=== PATIENT | male | born 1995 | race Caucasian/White ===

== ENCOUNTER → 2018-02-07 | Outpatient (CLI) | payer MEDICAID ==
[~2018-02-07] MED LIST: KEFLEX500 M1 PO; MOTRIN400 MG PO
== END | disposition home or self-care (01) ==
LOC: RESCLI 02:40
DX: G40.909 Epilepsy, unspecified, not intractable, without status epilepticus (principal); F17.210 Nicotine dependence, cigarettes, uncomplicated; Z76.89 Persons encountering health services in other specified circumstances

== ENCOUNTER 2022-10-17 13:21 | Emergency (ER) | payer SELFPAY ==
[~2022-10-17] VITALS: Ht 182.8 cm; Wt 78.2 kg
[2022-10-17 14:08] LABS: MEAN CELL VOLUME 91.6 fl (80.0-94.0); MEAN CORPUSCULAR HGB 31.9 pg (27.0-31.0); MEAN CORPUSCULAR HGB CONC 34.8 g/dl (33.0-37.0); MEAN PLATELET VOLUME 11.4 fl (9.6-12.3); PLATELET COUNT AUTOMATED 204 10*3/uL (130-400); RED BLOOD COUNT 5.02 10*6/uL (4.50-5.90); RED CELL DISTRI WIDTH 12.5 % (0-14.5); WHITE BLOOD COUNT 17.4 10*3/uL (4.8-10.8)
[2022-10-17 14:15] LABS: MANUAL DIFF REFLEX YES
[2022-10-17 14:30] LABS: PLATELET SUFFICIENCY NORMAL (NORMAL); TOTAL CELLS COUNTED 100 #CELLS; TOXIC GRANULATION SLIGHT
[2022-10-17 14:37] LABS: ALKALINE PHOSPHATASE 76 U/L (46-116); BUN 13 mg/dl (9-23); CHLORIDE 104 mmol/L (98-107); POTASSIUM 3.8 mmol/L (3.4-5.1); SGPT/ALT 10 U/L (10-49); TOTAL PROTEIN 7.6 gm/dL (6.0-8.0)
[2022-10-17] MEDS ORDERED: ATIVAN1 MG PO (16:06)
== END 2022-10-17 16:33 | disposition home or self-care (01) ==
LOC: ED 13:21
PROVIDERS: Emergency Medicine
DX: R56.9 Unspecified convulsions (principal)

== ENCOUNTER 2022-12-03 20:20 | Emergency (ER) | payer SELFPAY ==
[~2022-12-03] VITALS: Ht 167.6 cm; Wt 86.2 kg
[~2022-12-03 20:20] MED LIST changes: +ATIVAN1 MG PO
[2022-12-03 20:47] LABS: BASO # 0.1 10*3/uL (0.0-0.1); BASO % 0.6 % (0.0-1.0); EOS # 0.2 10*3/uL (0.0-0.4); EOS % 2.3 % (1.0-4.0); HEMATOCRIT 49.4 % (42.0-52.0); LYMPH # 3.8 10*3/uL (1.3-4.4); MEAN CELL VOLUME 97.1 fl (80.0-94.0); MEAN PLATELET VOLUME 10.8 fl (9.6-12.3); MONO # 0.5 10*3/uL (0.1-1.0); MONO % 5.1 % (3.0-9.0); NEUT # 5.9 10*3/uL (2.3-7.9); NEUT % 55.8 % (47.0-73.0); PLATELET COUNT AUTOMATED 256 10*3/uL (130-400); RED BLOOD COUNT 5.09 10*6/uL (4.50-5.90); RED CELL DISTRI WIDTH 12.7 % (0-14.5); WHITE BLOOD COUNT 10.6 10*3/uL (4.8-10.8)
[2022-12-03 21:20] LABS: ALKALINE PHOSPHATASE 73 U/L (46-116); BUN 11 mg/dl (9-23); CHLORIDE 99 mmol/L (98-107); POTASSIUM 3.6 mmol/L (3.4-5.1); SGPT/ALT 40 U/L (10-49); TOTAL PROTEIN 7.4 gm/dL (6.0-8.0)
== END 2022-12-04 01:48 | disposition left against medical advice (07) ==
LOC: ED 20:20
PROVIDERS: Emergency Medicine
DX: R56.9 Unspecified convulsions (principal)

== ENCOUNTER 2023-03-04 14:07 | Emergency (ER) | payer SELFPAY ==
[~2023-03-04] VITALS: Ht 190.5 cm; Wt 77.1 kg
[2023-03-04] MEDS ORDERED: KEPPRA1000 MG PO ×3 (14:20→19:57)
[2023-03-04 16:14] LABS: BASO % 0.5 % (0.0-1.0); EOS % 0.2 % (1.0-4.0); LYMPH # 1.4 10*3/uL (1.3-4.4); LYMPH % 21.6 % (27.0-41.0); MEAN CELL VOLUME 88.8 fl (80.0-94.0); MEAN CORPUSCULAR HGB 30.4 pg (27.0-31.0); MEAN CORPUSCULAR HGB CONC 34.2 g/dl (33.0-37.0); MEAN PLATELET VOLUME 10.5 fl (9.6-12.3); MONO # 0.7 10*3/uL (0.1-1.0); NEUT # 4.2 10*3/uL (2.3-7.9); NEUT % 66.2 % (47.0-73.0); PLATELET COUNT AUTOMATED 217 10*3/uL (130-400); RED BLOOD COUNT 4.84 10*6/uL (4.50-5.90); RED CELL DISTRI WIDTH 12.2 % (0-14.5); WHITE BLOOD COUNT 6.4 10*3/uL (4.8-10.8)
[2023-03-04 16:39] LABS: ALKALINE PHOSPHATASE 64 U/L (46-116); BUN 9 mg/dl (9-23); CHLORIDE 103 mmol/L (98-107); POTASSIUM 3.7 mmol/L (3.4-5.1); SGPT/ALT 12 U/L (5-49); TOTAL PROTEIN 6.9 gm/dL (6.0-8.0)
[2023-03-04 16:51] LABS: ETHYL ALCOHOL < 3.0 mg/dl (<3)
[2023-03-04 19:24] LABS: BILIRUBIN Negative (Negative); BLOOD Negative (Negative); CLARITY Turbid (Clear); COLOR Yellow (Yellow); GLUCOSE Negative (Negative); KETONE Negative (Negative); LEUKO ESTERASE Negative (Negative); NITRITE Negative (Negative); SPECIFIC GRAVITY 1.015 (1.001-1.030)
[2023-03-04 19:25] LABS: PH 8.5 (4.5-8.0)
[2023-03-04 19:31] LABS: URINE AMPHETAMINES Negative (1000ng/ml); URINE BARBITURATES Negative (200ng/ml); URINE BENZODIAZEPINES Negative (200ng/ml); URINE CANNABINOIDS (THC) Positive (50ng/ml); URINE COCAINE Negative (300ng/ml); URINE METHADONE Negative (300ng/ml); URINE OPIATES Negative (300ng/ml); URINE PHENCYCLIDINE Negative (25ng/ml)
== END 2023-03-04 19:47 | disposition home or self-care (01) ==
LOC: ED 14:07
PROVIDERS: Family Medicine
DX: R56.9 Unspecified convulsions (principal); R44.0 Auditory hallucinations

== ENCOUNTER 2023-12-20 08:27 | Emergency (ER) | payer SELFPAY ==
[~2023-12-20] VITALS: Wt 72.6 kg
[~2023-12-20 08:27] MED LIST changes: +KEPPRA1000 MG PO
[2023-12-20] MEDS ORDERED: LORazepam 2 MG/ML VIAL IV ONE (09:15)
[2023-12-20] MEDS ORDERED: SODIUM CHLORIDE 0.9% 500 ML IV ONE (09:15)
[2023-12-20] MEDS ORDERED: LORazepam 2 MG/ML VIAL ONE (09:25)
[2023-12-20 09:26] LABS: HEMATOCRIT 51.1 % (42.0-52.0); MANUAL DIFF REFLEX YES; MEAN CORPUSCULAR HGB 31.1 pg (27.0-31.0); MEAN CORPUSCULAR HGB CONC 32.1 g/dl (33.0-37.0); MEAN PLATELET VOLUME 11.2 fl (9.6-12.3); PLATELET COUNT AUTOMATED 323 10*3/uL (130-400); RED BLOOD COUNT 5.27 10*6/uL (4.50-5.90); WHITE BLOOD COUNT 31.7 10*3/uL (4.8-10.8)
[2023-12-20 09:49] LABS: OVALOCYTES FEW; POLYCHROMASIA SLIGHT; TOTAL CELLS COUNTED 100 #CELLS; VACUOLATION OF NEUTROPHILS SLIGHT
[2023-12-20 09:50] LABS: PLATELET SUFFICIENCY NORMAL (NORMAL)
[2023-12-20] MEDS ORDERED: LEVETIRACETAM IN NACL (ISO-OS) 100 ML IV ONE (10:20)
[2023-12-20 13:48] LABS: ALKALINE PHOSPHATASE 84 U/L (46-116); BUN 11 mg/dl (9-23); CHLORIDE 101 mmol/L (98-107); POTASSIUM 3.1 mmol/L (3.4-5.1); SGPT/ALT 23 U/L (5-49); TOTAL PROTEIN 8.6 gm/dL (6.0-8.0)
[2023-12-20] MEDS ORDERED: LEVETIRACETAM 500 MG TAB PO ONE (17:00)
[2023-12-20] MEDS ORDERED: POTASSIUM CHLORIDE 20 MEQ TAB PO ONE (17:00)
[2023-12-20] MEDS ORDERED: KEPPRA1000 MG PO (17:10)
== END 2023-12-20 17:17 | disposition home or self-care (01) ==
LOC: ED 08:27
PROVIDERS: Emergency Medicine
DX: G40.909 Epilepsy, unspecified, not intractable, without status epilepticus (principal); Z91.148 Patient's other noncompliance with medication regimen for other reason

== ENCOUNTER 2024-04-28 05:27 | Emergency (ER) | payer OTHER ==
[~2024-04-28] VITALS: Ht 172.7 cm; Wt 85.4 kg
[2024-04-28 06:29] LABS: MEAN CELL VOLUME 92.5 fl (80.0-94.0); MEAN CORPUSCULAR HGB 30.8 pg (27.0-31.0); MEAN CORPUSCULAR HGB CONC 33.3 g/dl (33.0-37.0); PLATELET COUNT AUTOMATED 275 10*3/uL (130-400); RED BLOOD COUNT 5.19 10*6/uL (4.50-5.90); RED CELL DISTRI WIDTH 12.6 % (0-14.5); WHITE BLOOD COUNT 22.4 10*3/uL (4.8-10.8)
[2024-04-28 06:35] LABS: MANUAL DIFF REFLEX YES
[2024-04-28] MEDS ORDERED: LORazepam 2 MG/ML VIAL ONE (06:35)
[2024-04-28 06:38] LABS: BILIRUBIN Negative (Negative); BLOOD 1+ (Negative); CLARITY Clear (Clear); COLOR Yellow (Yellow); GLUCOSE Negative (Negative); KETONE Trace (Negative); LEUKO ESTERASE Negative (Negative); NITRITE Negative (Negative); SPECIFIC GRAVITY 1.015 (1.001-1.030); UROBILINOGEN 0.2 E.U./dl (0.0-1.0)
[2024-04-28 06:45] LABS: BUN 13 mg/dl (9-23); CHLORIDE 105 mmol/L (98-107); POTASSIUM 4.1 mmol/L (3.4-5.1)
[2024-04-28 06:47] LABS: ETHYL ALCOHOL < 3.0 mg/dl (<3)
[2024-04-28 06:52] LABS: URINE AMPHETAMINES Negative (1000ng/ml); URINE BARBITURATES Negative (200ng/ml); URINE BENZODIAZEPINES Negative (200ng/ml); URINE CANNABINOIDS (THC) Positive (50ng/ml); URINE COCAINE Negative (300ng/ml); URINE METHADONE Negative (300ng/ml); URINE OPIATES Negative (300ng/ml); URINE PHENCYCLIDINE Negative (25ng/ml)
[2024-04-28] MEDS ORDERED: LEVETIRACETAM IN NACL (ISO-OS) 100 ML IV ONE (06:55)
[2024-04-28 07:04] LABS: BASOPHILS 1 % (0-1); PLATELET SUFFICIENCY NORMAL (NORMAL); TOTAL CELLS COUNTED 100 #CELLS
[2024-04-28 07:12] LABS: BACTERIA 1+
[2024-04-28] MEDS ORDERED: KEPPRA500 MG PO (10:16)
== END 2024-04-28 10:19 | disposition home or self-care (01) ==
LOC: ED 05:27
PROVIDERS: Internal Medicine
DX: R56.9 Unspecified convulsions (principal); Z79.899 Other long term (current) drug therapy

== ENCOUNTER 2024-06-13 08:26 | Emergency (ER) | payer OTHER ==
[~2024-06-13] VITALS: Ht 182.8 cm; Wt 78.5 kg
[~2024-06-13 08:26] MED LIST changes: +KEPPRA500 MG PO
[2024-06-13] MEDS ORDERED: LEVETIRACETAM IN NACL (ISO-OS) 100 ML IV ONE ×3 (08:30→09:55)
[2024-06-13] MEDS ORDERED: SODIUM CHLORIDE 0.9% 1,000 ML IV ONE ×3 (08:30→08:50)
[2024-06-13] MEDS ORDERED: LORazepam 2 MG/ML VIAL ONE (08:43)
[2024-06-13] MEDS ORDERED: ACETAMINOPHEN 650 MG SUPP R ONE (08:45)
[2024-06-13] MEDS ORDERED: MIDAZOLAM HCL IN 0.9 % NACL/PF 50 ML IV SCH (08:45)
[2024-06-13] MEDS ORDERED: PROPOFOL 50 ML IV SCH (08:45)
[2024-06-13] MEDS ORDERED: Vancomycin Hydrochloride 250 ML IV ONE (08:50)
[2024-06-13] MEDS ORDERED: Piperacillin Sodium/Tazobact 50 ML IV ONE (08:50)
[2024-06-13] MEDS ORDERED: PHENOBARBITAL SODIUM IV ONE ×2 (08:55→09:00)
[2024-06-13] MEDS ORDERED: INFUSION IV ONE ×2 (08:55→09:00)
[2024-06-13 08:59] LABS: HEMATOCRIT 51.3 % (42.0-52.0); MEAN CELL VOLUME 104.5 fl (80.0-94.0); MEAN CORPUSCULAR HGB 30.8 pg (27.0-31.0); MEAN CORPUSCULAR HGB CONC 29.4 g/dl (33.0-37.0); MEAN PLATELET VOLUME 12.7 fl (9.6-12.3); PLATELET COUNT AUTOMATED 160 10*3/uL (130-400); RED BLOOD COUNT 4.91 10*6/uL (4.50-5.90); RED CELL DISTRI WIDTH 12.3 % (0-14.5)
[2024-06-13 09:00] LABS: MANUAL DIFF REFLEX YES
[2024-06-13 09:19] LABS: POTASSIUM 3.8 mmol/L (3.4-5.1)
[2024-06-13 09:32] LABS: ATYPICAL LYMPHS 2 % (0-0); TOTAL CELLS COUNTED 100 #CELLS
[2024-06-13 09:33] LABS: PLATELET SUFFICIENCY NORMAL (NORMAL)
[2024-06-13 09:55] LABS: BILIRUBIN Negative (Negative); BLOOD 3+ (Negative); CLARITY Cloudy (Clear); COLOR Orange (Yellow); GLUCOSE 1+ (Negative); KETONE Trace (Negative); LEUKO ESTERASE Negative (Negative); NITRITE Negative (Negative); SPECIFIC GRAVITY 1.015 (1.001-1.030); UROBILINOGEN 0.2 E.U./dl (0.0-1.0)
[2024-06-13] MEDS ORDERED: ACYCLOVIR SODIUM IV ONE ×2 (09:55→10:00)
[2024-06-13] MEDS ORDERED: DEXTROSE 5% IV ONE ×2 (09:55→10:00)
[2024-06-13 10:10] LABS: BACTERIA 1+; RBC TNTC rbc/hpf (0-2); URINE AMPHETAMINES Negative (1000ng/ml); URINE BARBITURATES Negative (200ng/ml); URINE BENZODIAZEPINES Negative (200ng/ml); URINE CANNABINOIDS (THC) Positive (50ng/ml); URINE COCAINE Negative (300ng/ml); URINE METHADONE Negative (300ng/ml); URINE OPIATES Negative (300ng/ml); URINE PHENCYCLIDINE Negative (25ng/ml); WBC 0-2 wbc/hpf (0-5)
[2024-06-13] MEDS ORDERED: Oseltamivir Phosphate 75 MG CAP PO ONE (10:25)
[2024-06-13 10:36] LABS: ABG O2 SATURATION 99.5 % (94.0-98.0)
[2024-06-13 10:43] LABS: ARTERIAL BLOOD GAS PH 7.04 (7.350-7.450)
[2024-06-13 10:44] LABS: ABG BASE EXCESS -14.8 mmol/L (-2.0-3.0)
[2024-06-13 10:45] LABS: ARTERIAL BLOOD GAS PO2 398.6 mmHg (83.0-108.0)
[2024-06-13] MEDS ORDERED: ROCURONIUM BROMIDE 50 MG/5 ML SYRINGE IV ONE ×2 (12:10→12:50)
[2024-06-13] MEDS ORDERED: Succinylcholine Chloride 200 MG/10 ML SYRINGE IV ONE (12:10)
[2024-06-13] MEDS ORDERED: ETOMIDATE 20 MG/10 ML VIAL IV ONE ×2 (12:15→12:50)
== END 2024-06-13 14:01 | disposition short-term general hospital (02) ==
LOC: ED 08:26
PROVIDERS: Emergency Medicine
DX: J96.90 Respiratory failure, unspecified, unspecified whether with hypoxia or hypercapnia (principal); J10.1 Influenza due to other identified influenza virus with other respiratory manifestations; Z20.822 Contact with and (suspected) exposure to COVID-19; G40.901 Epilepsy, unspecified, not intractable, with status epilepticus; R00.0 Tachycardia, unspecified; Z79.899 Other long term (current) drug therapy

== ENCOUNTER 2025-02-05 12:57 | Emergency (ER) | payer SELFPAY ==
[~2025-02-05] VITALS: Wt 81.6 kg
[2025-02-05] MEDS ORDERED: SODIUM CHLORIDE 0.9% 1,000 ML IV ONE (13:10)
[2025-02-05] MEDS ORDERED: LEVETIRACETAM IN NACL (ISO-OS) 100 ML IV ONE (13:10)
[2025-02-05 13:30] LABS: MEAN CELL VOLUME 100.9 fl (80.0-94.0); MEAN CORPUSCULAR HGB 30.9 pg (27.0-31.0); MEAN PLATELET VOLUME 12.1 fl (9.6-12.3); NUCLEATED RED BLOOD CELL 0.0 % (0.0-0.0); NUCLEATED RED BLOOD CELL 0.0 10*3/uL (0.0-0.0); PLATELET COUNT AUTOMATED 231 10*3/uL (130-400); RED CELL DISTRI WIDTH 12.0 % (0-14.5)
[2025-02-05 13:39] LABS: MANUAL DIFF REFLEX YES
[2025-02-05 13:55] LABS: BUN 13 mg/dl (9-23); PLATELET SUFFICIENCY NORMAL (NORMAL)
[2025-02-05 15:10] LABS: BUN 13 mg/dl (9-23)
== END 2025-02-05 15:42 | disposition home or self-care (01) ==
LOC: ED 12:57
PROVIDERS: Emergency Medicine
DX: R56.9 Unspecified convulsions (principal); Z79.899 Other long term (current) drug therapy